=== PATIENT | male | born 1945 | race Caucasian/White ===

== ENCOUNTER 2017-08-24 08:00 | Outpatient (RCR) | payer BC ==
[~2017-08-24 08:00] MED LIST: AFRIN; ASPIRIN EC81 MG PO; ATACAND HCT 161 EACH PO; B-121000 MCG PO; CENTRUM SILVER1 EAC1 PO; FENOFIBRATE160 MG PO; GLIMEPIRIDE1 MG PO; LORTAB 10-5001 EACH PO; METFORMIN HCL500 M1 PO; PANTOPRAZOLE SO40 MG PO; VICTOZA PO; VITAMIN D1000 UNI1 PO; ZOCOR20 MG PO; [UNRECOGNIZED DRUG - REMARK]
== END 2017-09-02 ==
LOC: OT 08:00
PROVIDERS: ATTEND Specialist
DX: M79.642 Pain in left hand (principal); M25.442 Effusion, left hand
CPT/HCPCS: 97022 ×6; 97110 ×7; 97139; 97165; G8987; G8988

== ENCOUNTER → 2017-09-08 | Outpatient (CLI) | payer BC ==
--- NOTE | 2017-09-08 15:00 | Diagnostic Imaging Report ---
TECHNIQUE: Magnetic resonance imaging of the LEFT WRIST was performed WITHOUT injected contrast, on a 1.5 harjinder magnet. Motion artifact markedly limits sensitivity and specificity of the exam. HISTORY: Pain and numbness, history of fracture 50 years ago, possible sprain although the patient denies recent trauma COMPARISON: None available. FINDINGS: Bone and bone marrow: No focal or infiltrative bone marrow replacing abnormality. No acute fracture or osteonecrosis. A 4 mm chronic appearing ossific fragment adjacent to the distal ulna. A 2 mm chronic appearing ossific fragment adjacent to the volar aspect of the attenuated appearing the hamate. Mild widening of the scapholunate interval, 4 mm. On the limited sagittal sequences, there appears to be a DISI deformity. Joints: Multifocal mild to moderate arthropathy. Multiple scattered small subchondral small cysts versus less likely erosions. Ligaments: Scapholunate: The dorsal band appears thickened, ill-defined and markedly heterogeneous with contour irregularity. Full-thickness tearing of the central membranous portion. The proximal volar fibers are markedly ill-defined. Lunotriquetral: Intact Triangular fibrocartilage complex: Ulnar positive variance results in bowing of the triangular fibrocartilage complex. Peripheral and mid substance complex tearing and degeneration. Extrinsic ligaments: Intact Tendons: The visualized tendons appear intact. The extensor carpi ulnaris tendon is more superficial in expected the level of the distal ulna, suggesting remote subtle sheath and possibly retinacular tearing. Trace to small amount of fluid adjacent to the distal flexor carpi radialis tendon and the radial sided flexor digitorum profundus tendons. Carpal tunnel: The median nerve is within normal limits. Other soft tissues: Mild nonspecific edema within the thenar soft tissues. IMPRESSION: 1. Mild multifocal flexor tendon tenosynovitis. 2. Mild nonspecific thenar eminence soft tissue edema. 3. Degenerative tearing and scarring of the scapholunate ligament with associated mild scapholunate dissociation and DISI deformity. 4. Degenerative tearing and scarring of the triangular fibrocartilage complex. 5. 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 6. Two small chronic unhealed avulsion fractures, as detailed above. Signed by: Dr. Parish Costa D.O., M.M.M. on 09/08/2017 2:56 PM
== END ==
LOC: MRI 07:35
PROVIDERS: ATTEND Specialist
DX: M54.12 Radiculopathy, cervical region (principal); S63.512D Sprain of carpal joint of left wrist, subsequent encounter; S63.522D Sprain of radiocarpal joint of left wrist, subsequent encounter

== ENCOUNTER → 2017-10-05 | Day surgery (SDC) | payer BC ==
--- NOTE | 2017-10-01 09:03 | Diagnostic Imaging Report ---
PROCEDURE: X-RAY CHEST, TWO VIEWS COMPARISON: 02/14/2013. INDICATIONS: PREOPERATIVE CHEST XRAY FOR CARPAL TUNNEL SURGERY FINDINGS: Lungs are well-inflated. No focal consolidation, pleural effusion, or pneumothorax. Stable lingular and right lower lobe calcified granulomata. Tortuosity and atherosclerotic calcification of the thoracic aorta. Normal heart size. No pulmonary edema. No acute osseous abnormality. Cervical spine fusion hardware is again noted. CONCLUSION: No acute cardiopulmonary abnormality. Dictated by: Harry Roberts M.D. on 10/01/2017 at 9:07 Electronically approved by: Harry Roberts M.D. on 10/01/2017 at 9:07
[2017-10-01 09:13] LABS: BASOPHILS # (AUTO) 0.1 (0.0-0.1); BASOPHILS % 0.6 % (0.0-1.0); EOSINOPHILS # (AUTO) 0.2 (0.0-0.4); EOSINOPHILS % 1.7 % (0.0-6.0); HEMATOCRIT 35.9 % (38.2-49.6); HEMOGLOBIN 10.9 g/dL (14.0-18.0); LYMPHOCYTES # (AUTO) 1.7 (1.0-3.2); LYMPHOCYTES % 18.8 % (18.0-39.1); MEAN CORPUSCULAR HEMOGLOBIN 18.8 pg (28-32); MEAN CORPUSCULAR HGB CONC 30.4 g/dL (31-35); MONOCYTES # (AUTO) 0.7 (0.2-0.8); NEUTROPHILS # (AUTO) 6.3 (2.1-6.9); PLATELET COUNT 318 x10e3/uL (140-360); RED BLOOD COUNT 5.79 x10e6/uL (4.3-5.7); RED CELL DISTRIBUTION WIDTH 18.2 % (11.7-14.4)
[2017-10-01 09:25] LABS: ANION GAP 13.3 mmol/L (8-16); BLOOD UREA NITROGEN 16 mg/dL (7-26); BUN/CREATININE RATIO 18 (6-25); CALCIUM 9.6 mg/dL (8.4-10.2); CARBON DIOXIDE 26 mmol/L (22-29); CHLORIDE 103 mmol/L (98-107); CREATININE, SERUM 0.89 mg/dL (0.72-1.25); EST GLOMERULAR FILTRATION RATE > 60 ML/MIN (60-); GLUCOSE 98 mg/dL (74-118); POTASSIUM 4.3 mmol/L (3.5-5.1); SODIUM 138 mmol/L (136-145)
[~2017-10-05] MED LIST changes: +ALENDRONATE SOD70 MG; +ATACAND16 MG; +BUPIVACAINE HCL 0.5% INJ 30 ML VIAL INJ ONE; +CALCIUM CARBON500 MG PO; +CEFAZOLIN SOD 2 GM/D5W 50ML 50 ML IV ONE; +DEXAMETHASONE SOD PHOS INJ 4 MG/ML VIAL ONE; +FENTANYL CITRATE/PF 100MCG/2 ML INJ ONE; +HUMALOG MI100 UNIT/2; +INDOMETHACIN75 MG; +KETOROLAC TROMETHAMINE 30 MG/ML VIAL ONE; +LIDOCAINE HCL 2% LOCAL INJ 5 ML SDV VIAL INJ ONE; +MIDAZOLAM HCL 2 MG/2 ML VIAL ONE; +OMEPRAZOLE40 MG; +ONDANSETRON HCL INJ 2 MG/ML VIAL ONE; +PROPOFOL IV EMULSION 10 MG/ML 20 ML VIAL ONE; +SEVOFLURANE INHAL SOLN 250 ML PEN BTL ONE
--- NOTE | 2017-10-11 09:15 | Operative Report ---
DATE OF PROCEDURE: October 05, 2017 PREOPERATIVE DIAGNOSIS: Left carpal tunnel syndrome. POSTOPERATIVE DIAGNOSIS: Left carpal tunnel syndrome. PROCEDURE PERFORMED: Patient underwent an open left carpal tunnel release. 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 ANESTHESIA: General endotracheal intubation anesthesia. IV FLUIDS: Per the anesthesia record. DESCRIPTION OF PROCEDURE: Mr. Tejada was taken to the operating room and placed in supine position on the operating table. Following induction of general anesthesia as well as endotracheal intubation, the patient's left upper extremity was examined under anesthesia. He was found to have a normal-appearing hand. The patient's upper extremity was prepped and draped in the standard surgical fashion. Incision was created along the thenar palmar crease. This incision was carried through skin only. Blunt dissection was used to deepen the incision to the transverse carpal ligament. The distal edge of the transverse carpal ligament was identified. A hemostat was placed through the ligament. The transverse carpal ligament was then divided in line with the skin incision. Examination of the carpal canal demonstrated no abnormalities. The tourniquet was deflated, and hemostasis was obtained. The wound was then closed in a single-layer fashion. Sterile dressings were applied. The patient was then awakened and taken to the postanesthesia care unit in stable condition. Job#: [id number]
== END | disposition home or self-care (01) ==
LOC: OR 05:10
PROVIDERS: ATTEND Specialist
DX: G56.02 Carpal tunnel syndrome, left upper limb (principal); M19.042 Primary osteoarthritis, left hand; S63.512A Sprain of carpal joint of left wrist, initial encounter; S63.522A Sprain of radiocarpal joint of left wrist, initial encounter; G62.9 Polyneuropathy, unspecified; I10 Essential (primary) hypertension; E11.9 Type 2 diabetes mellitus without complications; K21.9 Gastro-esophageal reflux disease without esophagitis; M10.9 Gout, unspecified; X58.XXXA Exposure to other specified factors, initial encounter; Z01.810 Encounter for preprocedural cardiovascular examination; Z01.812 Encounter for preprocedural laboratory examination; Z01.818 Encounter for other preprocedural examination; Z79.4 Long term (current) use of insulin; Z68.30 Body mass index [BMI] 30.0-30.9, adult; Z85.46 Personal history of malignant neoplasm of prostate
CPT/HCPCS: 36415 ×2; 64721; 71046; 80048; 82948; 85025; 93005; J1100; J1885; J2001; J2250; J2405

== ENCOUNTER 2018-07-21 07:47 | Observation (INO) | payer BC ==
[2018-07-20 11:13] LABS: BASOPHILS % 0.5 % (0.0-1.0); EOSINOPHILS # (AUTO) 0.2 (0.0-0.4); EOSINOPHILS % 2.4 % (0.0-6.0); HEMATOCRIT 37.6 % (38.2-49.6); HEMOGLOBIN 11.3 g/dL (14.0-18.0); LYMPHOCYTES # (AUTO) 1.7 (1.0-3.2); LYMPHOCYTES % 26.1 % (18.0-39.1); MEAN CORPUSCULAR HEMOGLOBIN 18.9 pg (28-32); MEAN CORPUSCULAR HGB CONC 30.1 g/dL (31-35); MONOCYTES # (AUTO) 0.6 (0.2-0.8); MONOCYTES % 8.5 % (4.4-11.3); NEUTROPHILS # (AUTO) 4.1 (2.1-6.9); NEUTROPHILS % 61.9 % (38.7-80.0); PLATELET COUNT 292 x10e3/uL (140-360); RED BLOOD COUNT 5.97 x10e6/uL (4.3-5.7); RED CELL DISTRIBUTION WIDTH 17.5 % (11.7-14.4)
[2018-07-20 11:21] LABS: INR 0.92; PROTHROMBIN TIME 12.9 seconds (11.9-14.5)
[2018-07-20 11:22] LABS: PARTIAL THROMBOPLASTIN TIME 34.4 seconds (23.8-35.5)
[2018-07-20 11:28] LABS: ANION GAP 12.8 mmol/L (8-16); BLOOD UREA NITROGEN 13 mg/dL (7-26); BUN/CREATININE RATIO 15 (6-25); CALCIUM 9.7 mg/dL (8.4-10.2); CARBON DIOXIDE 26 mmol/L (22-29); CHLORIDE 105 mmol/L (98-107); CREATININE, SERUM 0.88 mg/dL (0.72-1.25); EST GLOMERULAR FILTRATION RATE > 60 ML/MIN (60-); GLUCOSE 93 mg/dL (74-118); POTASSIUM 3.8 mmol/L (3.5-5.1); SODIUM 140 mmol/L (136-145)
--- NOTE | 2018-07-20 11:28 | Diagnostic Imaging Report ---
EXAMINATION: PA and lateral views of the chest. COMPARISON: None CLINICAL HISTORY: Preoperative exam for cervical spine surgery DISCUSSION: The lungs are well-inflated and without focal airspace consolidation, pleural effusion, or pneumothorax. Bilateral calcified granulomata. Tortuous thoracic aorta with normal heart size. No overt pulmonary edema. No acute osseous abnormality. Degenerative disc changes of the thoracic spine. Cervical spine fusion hardware partially visualized. IMPRESSION: No acute cardiopulmonary abnormalities. Signed by: Dr. Harry Roberts M.D. on 07/20/2018 11:25 AM
[~2018-07-21] VITALS: Ht 172.7 cm; Wt 88.5 kg
[~2018-07-21 07:47] MED LIST changes: +ACETAMINOPHEN 1000 MG/100 ML 100 ML IV ONE; -ALENDRONATE SOD70 MG; +ALENDRONATE SOD70 MG PO; +ASPIR 8181 MG PO; -BUPIVACAINE HCL 0.5% INJ 30 ML VIAL INJ ONE; -CEFAZOLIN SOD 2 GM/D5W 50ML 50 ML IV ONE; +CYCLOBENZAPRINE10 MG PO; -DEXAMETHASONE SOD PHOS INJ 4 MG/ML VIAL ONE; -FENTANYL CITRATE/PF 100MCG/2 ML INJ ONE; +HUMALOG100 UNIT/1 SC; +IBUPROFEN 250 ML IV ONE; -KETOROLAC TROMETHAMINE 30 MG/ML VIAL ONE; +LIDOCAINE HCL (LTA) 4 ML SOLN ONE; -LIDOCAINE HCL 2% LOCAL INJ 5 ML SDV VIAL INJ ONE; -MIDAZOLAM HCL 2 MG/2 ML VIAL ONE; -ONDANSETRON HCL INJ 2 MG/ML VIAL ONE; -PROPOFOL IV EMULSION 10 MG/ML 20 ML VIAL ONE; -SEVOFLURANE INHAL SOLN 250 ML PEN BTL ONE; +TRESIBA SC; +VIT D PO
--- OUTSIDE RECORDS SUMMARY | 2018-07-21 07:50 | XMS REPORT | Continuity of Care Document ---
Author Author [facility] Interface Address Unknown Phone Unavailable Problems Problem Status Onset Date Classification Date Reported Comments Source Medications Medication Details Route Status Patient Instructions Ordering Provider Order Date Source Hydrocodone Bit/Acetaminophen (Lortab 10-500 Tablet) 1 Each Tablet, 1 - 2 Tab Oral Every 6 Hours as needed Active 09/18/2013 [facility] Afrin Daily [facility] Aspirin (Aspirin Ec) 81 Mg Tablet.dr Leon [facility] Candesartan/Hydrochlorothiazid (Atacand Hct 16-12.5 Mg Tab) 1 Each Tablet Daily [facility] Cholecalciferol (Vitamin D3) (Vitamin D) 1,000 Unit Tablet Daily [facility] Cyanocobalamin (Vitamin B-12) (B-12) 1,000 Mcg Tablet.er Daily [facility] Fenofibrate 160 Mg Tablet Daily [facility] Glimepiride 1 Mg Tablet Daily [facility] Metformin Hcl (Metformin Hcl Er) 500 Mg Tab.er.24h Daily [facility] Multivitamin W-Minerals/Lutein (Centrum Silver Tablet) 1 Each Tablet Daily [facility] Pantoprazole Sodium (Protonix) 40 Mg Tablet.dr Leon [facility] Pt Doesn't Know Meds 08/27/13 [facility] Simvastatin (Zocor) 20 Mg Tablet Bedtime [facility] Victoza Daily [facility] Allergies, Adverse Reactions, Alerts Substance Category Reaction Severity Reaction type Status Date Reported Comments Source Immunizations Immunization Date Given Site Status Last Updated Comments Source Results Order Name Results Value Reference Range Date Interpretation Comments Source Vital Signs Vital Sign Value Date Comments Source Encounters Location Location Details Encounter Type Encounter Number Reason For Visit Attending Provider ADM Date DC Date Status Source Discharged Recurring [id number] JAVAN HAN MD 08/24/2017 09/02/2017 [facility] Procedures Procedure Code Date Perfomer Comments Source
[2018-07-21] MEDS ORDERED: GELATIN SPONGE 12-7MM ONE (08:43)
[2018-07-21] MEDS ORDERED: THROMBIN FOR SOLN 5,000 UNIT VIAL ONE (08:43)
[2018-07-21] MEDS ORDERED: BUPIVACAINE 0.5%/EPI 30 ML SDV INJ ONE (08:43)
[2018-07-21] MEDS ORDERED: BACITRACIN 50,000 UNIT VIAL ONE (08:44)
[2018-07-21] MEDS ORDERED: CEFAZOLIN SOD 1 GM/NS 50ML 100 ML IV ONE (09:22)
[2018-07-21] MEDS ORDERED: ACETAMINOPHEN 325 MG TAB PO PRN (12:00)
[2018-07-21] MEDS ORDERED: OXYCODONE/ACETAMINOPHEN 5-325 1 EACH TABLET PO PRN (12:00)
[2018-07-21] MEDS ORDERED: ONDANSETRON HCL INJ 2MG/ML 2ML 2 MG/ML VIAL IV PRN (12:00)
[2018-07-21] MEDS ORDERED: MAGNESIUM/ALUMINUM/SIMETHICONE 30 ML UDC PO PRN (12:00)
[2018-07-21] MEDS ORDERED: HYDROMORPHONE 2MG/ML 2 MG/ML ML IV PRN (12:00)
[2018-07-21] MEDS ORDERED: MORPHINE SULFATE 5 MG/ML VIAL IM PRN (12:00)
[2018-07-21] MEDS ORDERED: PROMETHAZINE HCL (IM) 25 MG/ML VIAL IM PRN (12:00)
[2018-07-21] MEDS ORDERED: CEPACOL SORE THROAT LOZENGES PO PRN (12:00)
[2018-07-21] MEDS ORDERED: INSULIN LISPRO 4 UNIT SC SCH (12:00)
[2018-07-21] MEDS ORDERED: CARISOPRODOL 350 MG TAB PO PRN (12:00)
[2018-07-21] MEDS ORDERED: DESFLURANE 240 ML BTL INH ONE (13:42)
[2018-07-21] MEDS ORDERED: LIDOCAINE HCL 2% LOCAL INJ 5 ML SDV VIAL INJ ONE (13:42)
[2018-07-21] MEDS ORDERED: ONDANSETRON HCL INJ 2MG/ML 2ML 2 MG/ML VIAL ONE (13:42)
[2018-07-21] MEDS ORDERED: PROPOFOL IV EMULSION 10 MG/ML 20 ML VIAL ONE (13:42)
[2018-07-21] MEDS ORDERED: ROCURONIUM BROMIDE 10 MG/ML 5ML VIAL ONE (13:42)
[2018-07-21] MEDS ORDERED: DEXAMETHASONE SOD PHOS INJ 4 MG/ML VIAL ONE (13:42)
[2018-07-21] MEDS ORDERED: LIDOCAINE HCL 2% JELLY 5 ML TUBE ONE (13:42)
[2018-07-21 14:14] VITALS: BP 166/84
[2018-07-21] MEDS ORDERED: MIDAZOLAM HCL 2 MG/2 ML VIAL ONE (14:46)
[2018-07-21] MEDS ORDERED: FENTANYL CITRATE/PF 100MCG/2 ML INJ ONE (14:46)
--- NOTE | 2018-07-21 14:59 | NUR ---
Recvd patient from PACU. AAOx3. Assisted him to bed, surgery site anterior neck intact with soft neck collar. no bleeding or hematoma noted. not in any distress, bed in lowest position, call light in reach, family at bed side, keep monitoring
[2018-07-21] MEDS: OYST-CAL-D 500MG TABLET PO SCH (15:05)
[2018-07-21] MEDS: CYCLOBENZAPRINE HCL 10 MG TAB PO SCH ×2 (15:05→20:50)
[2018-07-21 15:10] VITALS: BP 166/84
[2018-07-21] MEDS: METFORMIN HCL 500 MG TAB CR PO SCH (17:04)
[2018-07-21] MEDS: INSULIN LISPRO 100 UNIT/1 ML 3ML VIAL SQ SCH (17:04)
[2018-07-21] MEDS: CEFAZOLIN SOD 1 GM/NS 50ML 50 ML IV SCH (17:05)
--- NOTE | 2018-07-21 18:27 | Operative Report ---
DATE OF PROCEDURE: 07/21/2018 SURGEON: Sameer Lutz MD PREOPERATIVE DIAGNOSIS: C4-5 spondylosis above the level of previous C5-C7 fusion. POSTOPERATIVE DIAGNOSIS: C4-5 spondylosis above the level of previous C5-C7 fusion. PROCEDURES: 1. C4-5 anterior cervical diskectomy and microsurgical osteophyte resection and allograft fusion, 35441. 2. Preparation of MTF corticocancellous allograft, 72997. 3. C4-5 anterior cervical plating with Synthes DPM plate, [id number]. ANESTHESIA: General. INDICATIONS: The patient is a 73-year-old man, who presents with C4-5 spondylosis and bilateral foraminal stenosis above the level of the previous C5-7 fusion. He is symptomatic with left C5 radiculopathy. He was taken to the operating room for decompression of the C4-5 segment and extension of his fusion to this region. PROCEDURE IN DETAIL: After induction of anesthesia, the patient was placed on the operating table in supine position. The right side of neck was prepped and draped in sterile fashion. The fluoroscopic C-arm was positioned in cross-table lateral orientation. A small transverse incision was created on the right side of the neck, superimposed on the C4-5 disk space as determined by fluoroscopy. The platysma was divided in line with the incision. A subplatysmal dissection was carried out and avascular plane of dissection was developed medially in sternocleidomastoid muscles and was followed medial to the carotid sheath to the anterior border of the cervical spine. The deep cervical fascia was opened and the esophagus was retracted to the left. The attachments of longus colli muscles to the anterolateral aspects of vertebral bodies of C4 and C5 were divided. The anterior longitudinal ligament was resected. Jber posts were inserted in C4 and C5. The Jber distractor was used to distract the disk space. The anterior anulus of the disk was incised with a #11 blade and the contents of this were thoroughly evacuated with angled curettes and pituitary rongeurs. The posterior osteophytes were meticulously drilled with a 2 mm cutting bur on a high-speed drill until they were completely removed. The posterior anulus of the disk, herniated disk material, and the posterior longitudinal ligament were resected layer by layer until the dura was fully exposed and decompressed. The medial aspects of the uncinate processes were resected bilaterally to further expose any compressed origins of the C5 nerve roots. After satisfactory decompression had been achieved, the endplates were prepared for fusion. The disk space was sized and found to be 8 mm in height. A piece of MTF corticocancellous allograft measuring 8 mm in thickness was selected and then loaded onto a corresponding Synthes ZPN plate. Construct was then inserted into the C4-5 disk space and tamped on the lateral fluoroscopic guidance. The plate was then screwed to the endplates of C4 and C5 with two pairs of 16 mm screws. All screws were locked and excellent construct was obtained. The wound was copiously irrigated with bacitracin solution. Meticulous hemostasis was secured. The retractor was removed. The platysma was closed with 3-0 Vicryl sutures. The skin was closed with 4-0 Vicryl sutures in subcuticular fashion. Steri-Strips and dressing were applied. The patient was awakened, expanding to postanesthesia Care Unit in stable condition. No intraoperative complications were encountered. ESTIMATED BLOOD LOSS: 10 mL. Sameer Lutz MD PP/DARREN /[id number]
--- NOTE | 2018-07-21 19:21 | NUR ---
Recieved report from AM nurse. Bedside rounds completed.
[2018-07-21] MEDS: LACTATED RINGER'S 1,000 ML IV SCH (20:07)
[2018-07-21 20:31] VITALS: BP 158/93
[2018-07-21] MEDS ORDERED: ZOLPIDEM TARTRATE 5 MG TAB PO PRN (21:00)
[2018-07-21] MEDS ORDERED: SIMVASTATIN 20 MG TAB PO SCH (21:00)
--- NOTE | 2018-07-21 21:20 | NUR ---
Patient c/o Milton = 5-6. Given pain meds as ordered by MD. Continue monitor.
[2018-07-22 00:39] VITALS: BP 151/82
[2018-07-22] MEDS: CEFAZOLIN SOD 1 GM/NS 50ML 50 ML IV SCH ×2 (02:00→09:19)
[2018-07-22] MEDS: LACTATED RINGER'S 1,000 ML IV SCH ×2 (02:30→02:35)
[2018-07-22 04:53] VITALS: BP 145/67
--- NOTE | 2018-07-22 05:58 | NUR ---
Patient off the floor for X-Ray via w/c.
--- NOTE | 2018-07-22 06:36 | Diagnostic Imaging Report ---
Cervical Spine Two Views CPT code: 36283 Indication: Status post surgery at C4-5 Technique: AP, swimmer's and lateral views of cervical spine obtained. Comparison: No relevant priors Findings: Cervical vertebral bodies can be visualized to C7. There is mild straightening of the cervical spine without listhesis. Anterior cervical discectomy and fusion at C4-5. Anterior fusion plate extends from C5 to C7. The hardware is intact without lucencies running the screws to suggest loosening. Mild prevertebral soft tissue swelling. No disc space narrowing. The facets and spinous processes are normally aligned. Alignment is maintained on the AP view. The skull base and upper chest normal. IMPRESSION: Postoperative changes as described above. Signed by: Dr. Jj Mcdermott MD on 07/22/2018 6:33 AM
[2018-07-22] MEDS ORDERED: PANTOPRAZOLE SOD 40 MG TABEC PO SCH (07:30)
[2018-07-22] MEDS: METFORMIN HCL 500 MG TAB CR PO SCH (07:59)
[2018-07-22] MEDS: CYCLOBENZAPRINE HCL 10 MG TAB PO SCH (08:00)
[2018-07-22] MEDS: OYST-CAL-D 500MG TABLET PO SCH (08:03)
[2018-07-22 08:04] VITALS: BP 154/76
[2018-07-22] MEDS: INSULIN LISPRO 100 UNIT/1 ML 3ML VIAL SQ SCH (08:04)
[2018-07-22 08:29] VITALS: BP 154/76
[2018-07-22] MEDS ORDERED: CANDESARTAN CILEXETIL 16 MG TAB PO SCH (09:00)
[2018-07-22] MEDS ORDERED: INSULIN DEGLUDEC SC SCH (09:00)
[2018-07-22] MEDS ORDERED: CHOLECALCIFEROL 1,000 UNIT TAB PO SCH (09:00)
[2018-07-22] MEDS ORDERED: ASPIRIN 81 MG CHEW TAB PO SCH (09:00)
[2018-07-22] MEDS ORDERED: OYST-CAL-D 500MG TABLET PO SCH (09:00)
[2018-07-22] MEDS ORDERED: ONDANSETRON HCL 4 MG ORAL DISINTEGRATING TAB PO PRN (09:30)
[2018-07-22] MEDS ORDERED: NORCO 7.5-3251 EACH PO (10:22)
== END 2018-07-22 10:47 | disposition home or self-care (01) ==
LOC: OR 07:47 → PACU V 11:50 → IMCU 13:32
PROVIDERS: ADMIT Neurological Surgery; ATTEND Neurological Surgery
DX: M50.121 Cervical disc disorder at C4-C5 level with radiculopathy (principal); M48.02 Spinal stenosis, cervical region; Z01.810 Encounter for preprocedural cardiovascular examination; Z01.812 Encounter for preprocedural laboratory examination; Z01.811 Encounter for preprocedural respiratory examination; E11.9 Type 2 diabetes mellitus without complications; I10 Essential (primary) hypertension; Z79.4 Long term (current) use of insulin; Z85.46 Personal history of malignant neoplasm of prostate; Z83.3 Family history of diabetes mellitus; Z80.42 Family history of malignant neoplasm of prostate
CPT/HCPCS: 20931; 22551; 22845; 36415 ×3; 71046; 72040; 80048; 82948 ×2; 85025; 85610; 85730; 86850; 86900; 88304; 93005; G0378 ×2; J0131; J0690 ×2; J1100; J2001 ×2; J2250; J2405; J2704; J7121; S0164; 77003

== ENCOUNTER → 2018-08-18 | Outpatient (CLI) | payer BC ==
[~2018-08-18] MED LIST changes: -ACETAMINOPHEN 1000 MG/100 ML 100 ML IV ONE; -IBUPROFEN 250 ML IV ONE; -LIDOCAINE HCL (LTA) 4 ML SOLN ONE; +NORCO 7.5-3251 EACH PO
--- NOTE | 2018-08-18 10:09 | Diagnostic Imaging Report ---
Exam: Cervical spine with flexion and extension History: Cervical disc herniation Comparison: 07/22/2018 Findings: Unchanged discectomy and fusion changes at C4-5 and plate and screw construct at C5-C7. Surgical hardware remains intact without evidence of loosening. Flexion and extension radiographs show no inducible malalignment. Prevertebral soft tissues are of normal thickness. Impression: Unchanged postsurgical appearance of the cervical spine. No inducible malalignment on flexion or extension radiographs. Signed by: Dr. Harry Roberts M.D. on 08/18/2018 10:06 AM
== END ==
LOC: RAD 08:56
PROVIDERS: ATTEND Neurological Surgery
DX: M50.20 Other cervical disc displacement, unspecified cervical region (principal); Z98.1 Arthrodesis status
CPT/HCPCS: 72050

== ENCOUNTER → 2019-01-19 | Day surgery (SDC) | payer BC ==
[2019-01-13 13:54] LABS: BASOPHILS % 0.4 % (0.0-1.0); EOSINOPHILS # (AUTO) 0.2 (0.0-0.4); EOSINOPHILS % 2.2 % (0.0-6.0); HEMATOCRIT 37.9 % (38.2-49.6); HEMOGLOBIN 11.5 g/dL (14.0-18.0); LYMPHOCYTES # (AUTO) 1.5 (1.0-3.2); LYMPHOCYTES % 20.1 % (18.0-39.1); MEAN CORPUSCULAR HGB CONC 30.3 g/dL (31-35); MEAN CORPUSCULAR VOLUME 62.5 fL (81-99); MONOCYTES # (AUTO) 0.6 (0.2-0.8); MONOCYTES % 8.4 % (4.4-11.3); NEUTROPHILS # (AUTO) 5.1 (2.1-6.9); NEUTROPHILS % 68.5 % (38.7-80.0); PLATELET COUNT 261 x10e3/uL (140-360); RED BLOOD COUNT 6.06 x10e6/uL (4.3-5.7); RED CELL DISTRIBUTION WIDTH 18.1 % (11.7-14.4)
[2019-01-13 14:14] LABS: ANION GAP 12.5 mmol/L (8-16); BLOOD UREA NITROGEN 13 mg/dL (7-26); BUN/CREATININE RATIO 12 (6-25); CALCIUM 9.3 mg/dL (8.4-10.2); CARBON DIOXIDE 26 mmol/L (22-29); CHLORIDE 107 mmol/L (98-107); CREATININE, SERUM 1.11 mg/dL (0.72-1.25); EST GLOMERULAR FILTRATION RATE > 60 ML/MIN (60-); GLUCOSE 162 mg/dL (74-118); POTASSIUM 4.5 mmol/L (3.5-5.1); SODIUM 141 mmol/L (136-145)
[~2019-01-19] MED LIST changes: -ATACAND16 MG; +ATACAND16 MG PO; +BUPIVACAINE HCL 0.5% INJ 30 ML VIAL INJ ONE; +CEFAZOLIN SOD 1 GM/NS 50ML 50 ML IV ONE; +DEXAMETHASONE SOD PHOS INJ 4 MG/ML VIAL ONE; +FENTANYL CITRATE/PF 100MCG/2 ML INJ ONE; +LIDOCAINE HCL 2% LOCAL INJ 5 ML SDV VIAL INJ ONE; +MIDAZOLAM HCL 2 MG/2 ML VIAL ONE; +MUPIROCIN 2% OINT 22 GM TUBE ONE; +ONDANSETRON HCL INJ 2MG/ML 2ML 2 MG/ML VIAL ONE; +PROPOFOL IV EMULSION 10 MG/ML 20 ML VIAL ONE; +SEVOFLURANE INHAL SOLN 250 ML PEN BTL ONE; +VITAMIN B-121000 MCG PO
--- NOTE | 2019-01-19 07:10 | NUR ---
SPIRITUAL CARE - Pre-Surgery Assessment: Pt in bed. Pt's at bedside. Pt reported supportive attention from family and friends. Intervention: I provided pastoral presence, hospitality, and sympathetic listening. I acquainted pt with availability of milled rice broker while hospitalized. Outcome: Pt expressed appreciation for visit. No need for follow up indicated at this time. DESI Shankarlain Spiritual Care Department O: [phone] Pager: [phone] ([phone] number calling from)
[2019-01-19 08:45] VITALS: BP 118/73
--- NOTE | 2019-01-19 23:51 | Operative Report ---
DATE OF PROCEDURE: 01/19/2019 SURGEON: Sam Paz MD PREOPERATIVE DIAGNOSIS: Left hand carpal tunnel syndrome. POSTOPERATIVE DIAGNOSES: 1. Left hand carpal tunnel syndrome. 2. Flexor tenosynovitis left wrist. PROCEDURE: 1. Left hand open carpal tunnel release. 2. Flexor tenosynovectomy left wrist. ANESTHESIA: General. HISTORY: The patient is a 73-year-old with EMG-proven left carpal tunnel syndrome. Risks, benefits and alternatives of treatment were discussed with the patient. The patient is prepared to undergo the procedure as outlined. DESCRIPTION OF PROCEDURE: The patient was brought to the operating theater. After the induction of adequate general inhalation anesthesia, the patient was prepped and draped in the supine position. A time out was performed by the entire operating room team. A 2.5 cm incision was marked out in the intrathenar space. The left upper extremity was exsanguinated, and a tourniquet was inflated to a pressure of 250 mmHg. The incision was made through the skin and subcutaneous tissues and all venous tributaries were controlled with bipolar cautery. The incision was deepened through the palmar fascia until the transverse carpal ligament was identified. The ligament was sharply sectioned, taking care to protect and preserve the median nerve underlying it. After the complete width of the ligament had been transected, the distal volar forearm fascia was divided under direct view. Proliferative flexor tenosynovium was noticed to encompass the median nerve and this was radically excised. After performing this maneuver, the nerve was noted to lie adequately decompressed. The wound was copiously irrigated with bacteriostatic saline, closed with 5-0 nylon in an interrupted horizontal mattress fashion. A Marcaine field block was performed at the operative site. Tourniquet was deflated. All of the fingers pinked up nicely and a sterile bulking conforming bandage was applied to the hand and the wrist. A fiberglass splint was fashioned to maintain the wrist in a modest amount of extension. This was held in place with a loosely wrapped Murray wrap. The patient tolerated the procedure well and was brought to the recovery room in satisfactory condition and discharged with a postoperative instruction sheet as well as a followup appointment. MD GO Zuleta/DARREN Alvarez: 01/19/2019 16:40:56 /[id number]
== END | disposition home or self-care (01) ==
LOC: OR 05:23
PROVIDERS: ATTEND Plastic Surgery
DX: G56.02 Carpal tunnel syndrome, left upper limb (principal); M65.832 Other synovitis and tenosynovitis, left forearm; I10 Essential (primary) hypertension; E11.9 Type 2 diabetes mellitus without complications; M19.90 Unspecified osteoarthritis, unspecified site; K44.9 Diaphragmatic hernia without obstruction or gangrene; Z01.810 Encounter for preprocedural cardiovascular examination; Z01.812 Encounter for preprocedural laboratory examination; Z79.82 Long term (current) use of aspirin
CPT/HCPCS: 25115; 36415 ×2; 80048; 82948; 85025; 93005; J0690; J1100; J2001; J2250; J2405; J2704; J3010

== ENCOUNTER → 2019-02-22 | Outpatient (CLI) | payer BC ==
[~2019-02-22] MED LIST changes: -BUPIVACAINE HCL 0.5% INJ 30 ML VIAL INJ ONE; -CEFAZOLIN SOD 1 GM/NS 50ML 50 ML IV ONE; -DEXAMETHASONE SOD PHOS INJ 4 MG/ML VIAL ONE; -FENTANYL CITRATE/PF 100MCG/2 ML INJ ONE; -LIDOCAINE HCL 2% LOCAL INJ 5 ML SDV VIAL INJ ONE; -MIDAZOLAM HCL 2 MG/2 ML VIAL ONE; -MUPIROCIN 2% OINT 22 GM TUBE ONE; -ONDANSETRON HCL INJ 2MG/ML 2ML 2 MG/ML VIAL ONE; -PROPOFOL IV EMULSION 10 MG/ML 20 ML VIAL ONE; -SEVOFLURANE INHAL SOLN 250 ML PEN BTL ONE
--- NOTE | 2019-02-22 13:29 | Diagnostic Imaging Report ---
Exam: Cervical spine series Clinical history: Status post fusion Findings: AP and lateral views of the neck including flexion and extension were obtained. The patient is status post anterior fusion of C4-5 and C5-C7 levels. The overall alignment appears anatomical. There is no evidence of hardware loosening. The prevertebral soft tissue is unremarkable. Impression: 1. Status post C4-C7 anterior fusion with postoperative changes. Signed by: Dr. Carter Austin MD on 02/22/2019 1:26 PM
== END ==
LOC: RAD 12:48
PROVIDERS: ATTEND Neurological Surgery
DX: M50.20 Other cervical disc displacement, unspecified cervical region (principal); M43.22 Fusion of spine, cervical region
CPT/HCPCS: 72050

== ENCOUNTER → 2021-04-17 | Day surgery (SDC) | payer MEDICARE ==
[2021-04-14 10:10] LABS: BASOPHILS % 0.4 % (0.0-1.0); EOSINOPHILS # (AUTO) 0.1 (0.0-0.4); EOSINOPHILS % 1.4 % (0.0-6.0); HEMATOCRIT 37.6 % (38.2-49.6); HEMOGLOBIN 11.5 g/dL (14.0-18.0); LYMPHOCYTES # (AUTO) 1.4 (1.0-3.2); LYMPHOCYTES % 20.5 % (18.0-39.1); MEAN CORPUSCULAR HEMOGLOBIN 19.4 pg (28-32); MEAN CORPUSCULAR HGB CONC 30.6 g/dL (31-35); MEAN CORPUSCULAR VOLUME 63.4 fL (81-99); MONOCYTES # (AUTO) 0.5 (0.2-0.8); MONOCYTES % 7.7 % (4.4-11.3); NEUTROPHILS # (AUTO) 4.7 (2.1-6.9); NEUTROPHILS % 68.4 % (38.7-80.0); PLATELET COUNT 240 x10e3/uL (140-360); RED BLOOD COUNT 5.93 x10e6/uL (4.3-5.7); RED CELL DISTRIBUTION WIDTH 17.2 % (11.7-14.4)
[2021-04-14 10:24] LABS: INR 1.14; PROTHROMBIN TIME 15.5 seconds (11.9-14.5)
[2021-04-14 12:14] LABS: ALBUMIN 3.8 g/dL (3.5-5.0); ALBUMIN/GLOBULIN RATIO 1.2 (0.8-2.0); ANION GAP 10.9 mmol/L (8-16); CALCIUM 9.5 mg/dL (8.4-10.2); CHOL/HDL RATIO 2.5 (3.9-4.7); CREATININE, SERUM 1.1 mg/dL (0.72-1.25); POTASSIUM 4.9 mmol/L (3.5-5.1)
[2021-04-17] VITALS (9 sets, daily range): BP systolic 126–160; BP diastolic 74–89
[~2021-04-17] VITALS: Ht 172.7 cm; Wt 86.2 kg
[~2021-04-17] MED LIST changes: +ELIQUIS5 MG PO; +FENTANYL CITRATE/PF 100MCG/2 ML INJ ONE; +HEPARIN SOD/SOD CHLORIDE 2,000 ML ONE; +IOPAMIDOL 370 MG/ML 200 ML INFUS..BTL INJ ONE; +LIDOCAINE HCL 2% LOCAL 20 ML VIAL ONE; +METOPROLOL SUCC50 MG PO; +MIDAZOLAM HCL 2 MG/2 ML VIAL ONE; +SODIUM CHLORIDE 0.9% 1000ML 1,000 ML ONE; +VERAPAMIL HCL 2.5 MG/ML 2 ML VIAL ONE
== END | disposition home or self-care (01) ==
LOC: CATH LAB 06:30
PROVIDERS: ATTEND Internal Medicine Cardiovascular Disease
DX: I25.10 Atherosclerotic heart disease of native coronary artery without angina pectoris (principal); R94.39 Abnormal result of other cardiovascular function study; I48.91 Unspecified atrial fibrillation; Z01.812 Encounter for preprocedural laboratory examination; Z20.822 Contact with and (suspected) exposure to COVID-19; Z79.02 Long term (current) use of antithrombotics/antiplatelets; Z79.4 Long term (current) use of insulin
CPT/HCPCS: 36415; 80053; 80061; 85025; 85610; 93454; C1887; J2001; J2250; J3010; J7030; Q9967; U0002; 99152

== ENCOUNTER → 2024-07-27 | Day surgery (SDC) | payer MEDICARE ==
[2024-07-20 11:27] LABS: BASOPHILS % 0.2 % (0.0-1.0); EOSINOPHILS # (AUTO) 0.2 (0.0-0.4); EOSINOPHILS % 1.8 % (0.0-6.0); HEMATOCRIT 33.6 % (38.2-49.6); HEMOGLOBIN 10.4 g/dL (14.0-18.0); LYMPHOCYTES # (AUTO) 1.8 (1.0-3.2); LYMPHOCYTES % 20.6 % (18.0-39.1); MEAN CORPUSCULAR HEMOGLOBIN 18.9 pg (28-32); MEAN CORPUSCULAR VOLUME 61.2 fL (81-99); MONOCYTES # (AUTO) 0.6 (0.2-0.8); MONOCYTES % 7.1 % (4.4-11.3); NEUTROPHILS % 69.7 % (38.7-80.0); PLATELET COUNT 378 x10e3/uL (140-360); RED BLOOD COUNT 5.49 x10e6/uL (4.3-5.7); RED CELL DISTRIBUTION WIDTH 15.9 % (11.7-14.4); WHITE BLOOD COUNT 8.54 x10e3/uL (4.8-10.8)
[2024-07-20 11:50] LABS: ANION GAP 14.3 mmol/L (8-16); CALCIUM 9.2 mg/dL (8.4-10.2); CREATININE, SERUM 1.02 mg/dL (0.72-1.25); POTASSIUM 4.3 mmol/L (3.5-5.1)
[~2024-07-27] MED LIST changes: +ACETAMINOPHEN 1000 MG/100 ML 100 ML IV ONE; +AMLODIPINE BESYL5 MG PO; +ATORVASTATIN CA20 MG PO; +CALCIUM ACETAT667 MG PO; +DEXAMETHASONE SOD PHOS INJ 4 MG/ML SDV ONE; +EPHEDRINE SULFATE INJ 50 MG/ML VIAL ONE; -HEPARIN SOD/SOD CHLORIDE 2,000 ML ONE; +HUMALOG KW200 UNIT/1 SQ; -IOPAMIDOL 370 MG/ML 200 ML INFUS..BTL INJ ONE; -LIDOCAINE HCL 2% LOCAL 20 ML VIAL ONE; +LIDOCAINE HCL 2% LOCAL INJ 5 ML SDV VIAL INJ ONE; -MIDAZOLAM HCL 2 MG/2 ML VIAL ONE; +MULTI-VITAMIN1 EACH PO; +ONDANSETRON HCL INJ 2MG/ML 2ML 2 MG/ML VIAL ONE; +PROPOFOL IV EMULSION 10 MG/ML 20 ML VIAL ONE; +ROCURONIUM BROMIDE 1 ML IV ONE; +SEVOFLURANE INHAL SOLN 250 ML PEN BTL ONE; -SODIUM CHLORIDE 0.9% 1000ML 1,000 ML ONE; +SUGAMMADEX SODIUM 200 MG/2 ML VIAL IV ONE; -VERAPAMIL HCL 2.5 MG/ML 2 ML VIAL ONE; +VITAMIN B COMP1 EACH; +VITAMIN D31 ML; +XARELTO20 MG PO
[2024-07-27] MEDS: LACTATED RINGER'S 1,000 ML ONE (05:53)
[2024-07-27] MEDS: FENTANYL CITRATE/PF 100MCG/2 ML INJ ONE (09:05)
[2024-07-27 09:45] VITALS: BP 136/67; PULSE 64; RESP 18; O2SAT 95
== END | disposition home or self-care (01) ==
LOC: OR 05:23
PROVIDERS: ATTEND Otolaryngology
DX: Q18.0 Sinus, fistula and cyst of branchial cleft (principal); I48.91 Unspecified atrial fibrillation; E11.9 Type 2 diabetes mellitus without complications; K21.9 Gastro-esophageal reflux disease without esophagitis; E78.00 Pure hypercholesterolemia, unspecified; I10 Essential (primary) hypertension; M81.0 Age-related osteoporosis without current pathological fracture; Z01.810 Encounter for preprocedural cardiovascular examination; Z01.812 Encounter for preprocedural laboratory examination; Z01.818 Encounter for other preprocedural examination; Z79.02 Long term (current) use of antithrombotics/antiplatelets; Z79.84 Long term (current) use of oral hypoglycemic drugs; Z79.4 Long term (current) use of insulin; Z79.899 Other long term (current) drug therapy; Z85.46 Personal history of malignant neoplasm of prostate
CPT/HCPCS: 36415 ×2; 42815; 71046; 80048; 82948; 85025; 88304; 88342; 93005; C1713; J0131; J0690; J1100; J2003; J2405; J2704; J3010; J7121